=== PATIENT | female | born 1950 | race Hispanic/Latino ===

== ENCOUNTER → 2021-03-05 | Outpatient (CLI) | payer OTHER | LOC: US 15:48 | PROVIDERS: ATTEND Urology | DX: R31.21 Asymptomatic microscopic hematuria (principal) | CPT/HCPCS: 74018; 76770 ==

== ENCOUNTER → 2021-04-05 | Day surgery (SDC) | payer OTHER ==
[2021-04-03 15:58] LABS: BASOPHILS # (AUTO) 0.1 (0.0-0.1); BASOPHILS % 1.6 % (0.0-1.0); EOSINOPHILS # (AUTO) 0.3 (0.0-0.4); EOSINOPHILS % 6.9 % (0.0-6.0); HEMATOCRIT 43.7 % (34.2-44.1); HEMOGLOBIN 13.7 g/dL (12.0-16.0); LYMPHOCYTES # (AUTO) 2.1 (1.0-3.2); LYMPHOCYTES % 45.5 % (18.0-39.1); MEAN CORPUSCULAR HEMOGLOBIN 27.6 pg (28-32); MEAN CORPUSCULAR HGB CONC 31.4 g/dL (31-35); MEAN CORPUSCULAR VOLUME 87.9 fL (81-99); MONOCYTES # (AUTO) 0.6 (0.2-0.8); MONOCYTES % 13.5 % (4.4-11.3); NEUTROPHILS # (AUTO) 1.5 (2.1-6.9); NEUTROPHILS % 32.5 % (38.7-80.0); PLATELET COUNT 276 x10e3/uL (140-360); RED BLOOD COUNT 4.97 x10e6/uL (3.6-5.1); RED CELL DISTRIBUTION WIDTH 13.6 % (11.7-14.4)
[2021-04-03 16:15] LABS: ANION GAP 11.1 mmol/L (8-16); CREATININE, SERUM 1.04 mg/dL (0.57-1.11); POTASSIUM 4.1 mmol/L (3.5-5.1)
[~2021-04-05] MED LIST: AMLODIPINE BESY10 MG PO; ATACAND16 MG PO; FENTANYL CITRATE/PF 100MCG/2 ML INJ ONE; FLOMAX0.4 MG PO; IOPAMIDOL 300MG/ML 50ML INFUS..BTL IV ONE; LIDOCAINE HCL 2% LOCAL INJ 5 ML SDV VIAL INJ ONE; LIPITOR10 MG PO; ONDANSETRON HCL INJ 2MG/ML 2ML 2 MG/ML VIAL ONE; POVIDONE IODINE 0.05% 0.05 % ML PO ONE; PROPOFOL IV EMULSION 10 MG/ML 20 ML VIAL ONE; SEVOFLURANE INHAL SOLN 250 ML PEN BTL ONE; SIMETHICONE80 MG PO
[2021-04-05 09:10] VITALS: BP 126/82
== END | disposition home or self-care (01) ==
LOC: OR 06:08
PROVIDERS: ATTEND Urology
DX: N39.0 Urinary tract infection, site not specified (principal); N31.2 Flaccid neuropathic bladder, not elsewhere classified; N32.89 Other specified disorders of bladder; N28.1 Cyst of kidney, acquired; N81.89 Other female genital prolapse; E66.9 Obesity, unspecified; R35.1 Nocturia; Z87.442 Personal history of urinary calculi; N81.10 Cystocele, unspecified; N81.6 Rectocele; N95.2 Postmenopausal atrophic vaginitis; I10 Essential (primary) hypertension; E78.5 Hyperlipidemia, unspecified; Z88.6 Allergy status to analgesic agent; Z88.8 Allergy status to other drugs, medicaments and biological substances
CPT/HCPCS: 36415; 52005; 74420; 80048; 85025; C1758; J2001; J2405; J2704; J3010; Q9967